=== PATIENT | male | born 1985 | race Caucasian/White ===

== ENCOUNTER 2017-07-23 01:03 | Emergency (ER) | payer OTHER ==
[~2017-07-23] VITALS: Ht 182.9 cm; Wt 120.9 kg
[2017-07-23 01:10] VITALS: TEMP 36.6; O2SAT 98; Ht 182.9 cm; Wt 120.9 kg
[2017-07-23 01:21] VITALS: BP 116/76
[2017-07-23] MEDS ORDERED: LORAZEPAM 2 MG/ML 1 ML VIAL IV STA (01:22)
[2017-07-23 01:32] LABS: BASO ABS # 0.07 K/uL (0-0.2); EOS % 3.8 %; EOS ABS # 0.26 K/uL (0-0.5); HEMATOCRIT 45.8 % (42-52); HEMOGLOBIN 16.2 g/dL (14.0-18.0); IG# 0.03 K/uL (0.00-0.02); LYMPH % 32.2 %; MEAN CELL VOLUME 86.3 fL (80-100); MEAN CORPUSCULAR HEMOGLOBIN 30.5 pg (25-34); MEAN CORPUSCULAR HGB CONC 35.4 g/dl (32-36); MEAN PLATELET VOLUME 9.3 fL (7.4-10.4); MONO % 7.6 %; MONO ABS # 0.52 K/uL (0.11-0.59); NEUT ABS # 3.75 K/uL (1.4-6.5); PLATELET COUNT 222 K/uL (130-400); RED CELL DISTRIBUTION WIDTH CV 13.1 % (11.5-14.5); WHITE BLOOD COUNT 6.83 K/uL (4.8-10.8)
[2017-07-23] MEDS ORDERED: IBUP-1050 PO (02:01)
[2017-07-23] MEDS ORDERED: ACET-1256 PO (02:01)
[2017-07-23 02:07] LABS: ALBUMIN 3.9 gm/dl (3.4-5.0); ALKALINE PHOSPHATASE 64 U/L (45-117); ALT/SGPT 39 U/L (12-78); AST/SGOT 21 U/L (15-37); BLOOD UREA NITROGEN 15 mg/dl (7-18); CALCIUM 8.6 mg/dl (8.5-10.1); CARBON DIOXIDE 25 mmol/L (21-32); CREATININE 0.71 mg/dl (0.60-1.40); GLUCOSE 90 mg/dl (70-99); LIPASE 91 U/L (73-393); SODIUM 139 mmol/L (136-145); TOTAL PROTEIN 7.2 gm/dl (6.4-8.2)
[2017-07-23] MEDS ORDERED: CLOTRIMAZOLE 1% CR 15 GM TUBE EXT ONE (02:30)
[2017-07-23 03:45] VITALS: PULSE 74; O2SAT 95
--- NOTE | 2017-07-23 04:16 | EMERGENCY ROOM VISIT NOTE ---
History First contact with patient: 01:16 Chief Complaint: CHEST PAIN Stated Complaint: CHEST PAIN,ALL OVER WEIRD FEELING Nursing Triage Summary: Patient c/o left sided chest tightness for two days that is intermittent also having sob on and off. History of Present Illness The patient is a 32 year old male who presents to the Emergency Room with complaints of intermittent chest pain for the past few days that lasts for about 10 minutes to left-sided chest. Nothing makes it better or worse. It does not radiate. Patient states he feels anxious and has been stressing over this. Because of this, he feels he might be short of breath. Patient denies exertional chest pain, cough, congestion, abdominal pain, leg pain, leg swelling , fever, chills, back pain, recent travel, drug use. He does smoke. No family history of heart disease or blood clots. His mother from breast cancer. Patient also complains of an itchy rash to his right lower leg for the past several weeks. He has tried steroid cream with no improvement of symptoms. Review of Systems An 10 system review of systems was completed with positives and pertinent negatives listed in the HPI. Past Medical/Surgical History None Social History Smoking Status: Current Every Day Smoker Alcohol Use: occasionally Drug Use: none Marital Status: single Housing Status: lives with roommate Occupation Status: employed Current/Historical Medications Scheduled PRN Acetaminophen (Tylenol), 500-1,000 MG PO DIRECTED PRN for Pain or Fever Ibuprofen (Advil), 200-600 MG PO Q4H PRN for Pain or Fever Physical Exam Vital Signs Date Time Temp Pulse Resp B/P (MAP) Pulse Ox O2 Delivery O2 Flow Rate FiO2 07/23/17 03:45 74 20 95 Room Air 07/23/17 03:15 71 96 Room Air 07/23/17 02:45 70 18 92 Room Air 07/23/17 02:15 75 22 92 Room Air 07/23/17 01:45 79 22 94 Room Air 07/23/17 01:40 79 22 96 Room Air 07/23/17 01:21 116/76 07/23/17 01:17 99 Room Air 07/23/17 01:13 73 07/23/17 01:11 134/83 07/23/17 01:10 36.6 67 20 134/83 99 Room Air 07/23/17 01:10 98 Room Air Physical Exam VITALS: Vitals are noted on the nurse's note and reviewed by myself. Vital signs stable. GENERAL: White male with tobacco odor, in no acute distress, nondiaphoretic, well-developed well-nourished. SKIN: Right lower leg with raised erythematous dermatitis 5 cm x 3 cm to the right lateral lower leg. The rest of the skin was without rashes, erythema, edema, or bruising. There is no tenting of the skin. Capillary reflex less than 2 seconds. HEAD: Normocephalic atraumatic. EARS: External auditory canals clear, tympanic membranes pearly beyer without erythema or effusion bilaterally. EYES: Pupils equal round and reactive to light and accommodation. Conjunctivae without injection, sclerae without icterus. Extraocular movements intact. NOSE: Patent, turbinates without inflammation or discharge. MOUTH: Mucous membranes moist. Pharynx without erythema or exudate. Uvula midline. Airway patent. Tongue does not deviate. NECK: Supple without nuchal rigidity. No lymphadenopathy. No thyromegaly. Cervical spine is nontender. No JVD. HEART: Regular rate and rhythm without murmurs gallops or rubs. LUNGS: Clear to auscultation bilaterally without wheezes, rales or rhonchi. No retractions or accessory muscle use. ABDOMEN: Positive bowel sounds x 4. Normal tympanic percussion. Soft, nontender, without masses or organomegaly. Malin sign negative. No guarding or rebound tenderness. No CVA tenderness MUSCULOSKELETAL: No muscle atrophy, erythema, or edema noted. NEURO: Patient was alert and oriented to person place and time. Normal sensation to light and sharp touch. No focal neurological deficits. Medical Decision & Procedures Laboratory Results 07/23/17 01:23 Red Blood Count 5.31, Mean Corpuscular Volume 86.3, Mean Corpuscular Hemoglobin 30.5, Mean Corpuscular Hemoglobin Concent 35.4, Mean Platelet Volume 9.3, Neutrophils (%) (Auto) 55.0, Lymphocytes (%) (Auto) 32.2, Monocytes (%) (Auto) 7.6, Eosinophils (%) (Auto) 3.8, Basophils (%) (Auto) 1.0, Neutrophils # (Auto) 3.75, Lymphocytes # (Auto) 2.20, Monocytes # (Auto) 0.52, Eosinophils # (Auto) 0.26, Basophils # (Auto) 0.07 07/23/17 01:23 Test 07/23/17 01:23 07/23/17 03:55 White Blood Count 6.83 K/uL (4.8-10.8) Red Blood Count 5.31 M/uL (4.7-6.1) Hemoglobin 16.2 g/dL (14.0-18.0) Hematocrit 45.8 % (42-52) Mean Corpuscular Volume 86.3 fL (80-100) Mean Corpuscular Hemoglobin 30.5 pg (25-34) Mean Corpuscular Hemoglobin Concent 35.4 g/dl (32-36) Platelet Count 222 K/uL (130-400) Mean Platelet Volume 9.3 fL (7.4-10.4) Neutrophils (%) (Auto) 55.0 % Lymphocytes (%) (Auto) 32.2 % Monocytes (%) (Auto) 7.6 % Eosinophils (%) (Auto) 3.8 % Basophils (%) (Auto) 1.0 % Neutrophils # (Auto) 3.75 K/uL (1.4-6.5) Lymphocytes # (Auto) 2.20 K/uL (1.2-3.4) Monocytes # (Auto) 0.52 K/uL (0.11-0.59) Eosinophils # (Auto) 0.26 K/uL (0-0.5) Basophils # (Auto) 0.07 K/uL (0-0.2) RDW Standard Deviation 41.0 fL (36.4-46.3) RDW Coefficient of Variation 13.1 % (11.5-14.5) Immature Granulocyte % (Auto) 0.4 % Immature Granulocyte # (Auto) 0.03 K/uL (0.00-0.02) D-Dimer < 190 ug/L FEU (0-500) Anion Gap 6.0 mmol/L (3-11) Est Creatinine Clear Calc Drug Dose 204.3 ml/min Estimated GFR () 145.9 Estimated GFR (Non- 125.9 BUN/Creatinine Ratio 21.5 (10-20) Calcium Level 8.6 mg/dl (8.5-10.1) Total Bilirubin 0.5 mg/dl (0.2-1) Direct Bilirubin 0.2 mg/dl (0-0.2) Aspartate Amino Transf (AST/SGOT) 21 U/L (15-37) Alanine Aminotransferase (ALT/SGPT) 39 U/L (12-78) Alkaline Phosphatase 64 U/L (45-117) Troponin I < 0.015 ng/ml (0-0.045) Total Protein 7.2 gm/dl (6.4-8.2) Albumin 3.9 gm/dl (3.4-5.0) Lipase 91 U/L (73-393) Chemistry Specimen Hemolysis Bedside Troponin I < 0.030 ng/ml (0-0.045) Medications Administered Medications (Trade) Dose Ordered Sig/Jing Route Start Time Stop Time Status Last Admin Dose Admin Lorazepam (Ativan Inj) 1 mg NOW STAT IV 07/23/17 01:22 07/23/17 01:23 DC 07/23/17 01:30 1 MG Clotrimazole (Lotrimin 1% Crm) 1 appln NOW ONCE EXT 07/23/17 02:30 07/23/17 02:31 DC 07/23/17 02:30 1 APPLN ED Course Prior records/ancillary studies reviewed. Triage Nursing notes reviewed. The patient's history was concerning for chest pain. Differential diagnosis: Etiologies such as cardiac ischemia, aortic dissection, pulmonary embolism, pneumonia, pneumothorax, musculoskeletal, infections, pericarditis, myocarditis , esophageal rupture, gastrointestinal, as well as others were entertained. Physical examination: As above. ER treatment provided: Ativan, clotrimazole cream to the rash On reassessment the patient felt better. Diagnostic interpretation by me: The electrocardiogram was negative for pathologic change. Normal sinus, normal intervals, no acute ST-T wave changes. Impression normal sinus rhythm interpreted by myself The labs revealed negative d-dimer. Negative troponin 2 Imaging studies: Chest x-ray with no acute consolidation, pneumothorax free of my interpretation HEART SCORE: Hx: high/mod/low suspicion: 0 ECG: ST depression/nonspecific changes/normal: 0 Age: Greater than 65/45-64/less than 45: 0 Risk factors: (Hypertension, hyperlipidemia, diabetes, coronary disease, tobacco use, cocaine use): 1 Troponin: Greater than 2 times normal limits/1-2 times normal limits/normal: 0 Total: 1 Wells Score Symptoms of DVT 3pt: 0 Alternative diagnoses better explains illness 3pts: 0 Tachycardia greater than 100 1.5 pts 0 Immobilization greater than 3 days or surgery in the previous 4 weeks 1.5 pts: 0 Prior history of DVT or PE 1.5 pts: 0 Presence of hemoptysis 1pt: 0 Presence of malignancy 1pt: 0 (Score greater than 6 is high probability, score 2-6 moderate probability, score less than 2 low probability) Total: 0 Exam and history seem consistent with chest pain most likely related to anxiety. Rash could be fungal and patient was given clotrimazole cream. Patient had unremarkable workup as above. Normal EKG. Negative troponin x 2. Negative d-dimer. Patient was advised to rest, stay well-hydrated follow-up family can a few days here in the ER sooner for chest pain, difficulty breathing , worsening signs or symptoms or as needed. I do not believe this is cardiac in etiology. Patient's heart score was low. He had a normal EKG and 2 negative troponins. D-dimer was negative and wells score was low. By the evaluation outlined above emergent etiologies such as cardiac ischemia, aortic dissection, pulmonary embolism, pneumonia, pneumothorax, infections, pericarditis, myocarditis, gastrointestinal, as well as others were deemed relatively unlikely. The pt informed about the findings as listed above. All questions were answered and pleased with the treatment. Return instructions were outlined and the patient was discharged in stable condition. Referral: The patient was referred back to primary care physician for follow-up in 2 to 3 days for a recheck of the current condition. Case reviewed with my attending The chart was completed utilizing [employer] Speech voice recognition software. Grammatical errors, random word insertions, pronoun errors, and incomplete sentences are an occassional consequence of this system due to software limitations, ambient noise, and hardware issues. Any formal questions or concerns about the content, text, or information contained within the body of this dictation should be directly addressed to the physician printer assistant for clarification. Medical Decision As above Medication Reconcilliation Current Medication List: was personally reviewed by me Blood Pressure Screening Patient's blood pressure: Normal blood pressure Impression Primary Impression: Substernal precordial chest pain Additional Impression: Dermatitis Departure Information Dispostion Home / Self-Care Condition GOOD Referrals No Doctor, Assigned (PCP) Patient Instructions My [facility] Additional Instructions Clotrimazole cream: Apply to the affected area twice a day.Any medication can cause an allergic reaction, stop the pills immediately and return to the ER for rash, hives, breathing difficulties, or swelling. Ibuprofen(Motrin, Advil) may be used for fever or pain. Use 600mg every six hours as needed. Take with food. Avoid using more than 2400mg in a 24 hour period. Do not use 2400mg per day for more than three consecutive days without physician direction. Prolonged inappropriate use can lead to stomach upset or ulcers. (AND/OR) Acetaminophen(Tylenol) may be used for fever or pain. Use 1000mg every six hours as needed. Avoid using more than 3000mg in a 24 hour period. Rest and drink plenty of fluids as tolerated. Continue current medications. Avoid strenuous activities and anything that worsens your pain. Resume normal activities once your symptoms resolve. Return to the ER immediately for worsening or persistent chest pain, abdominal pain, vomiting, fevers, chest pains, difficulty breathing, worsening of your condition, or as needed. Follow up with your primary physician in 2-3 days for a recheck of your current condition. Problem Qualifiers
--- NOTE | 2017-07-23 07:45 | DIAGNOSTIC IMAGING REPORT ---
CHEST ONE VIEW PORTABLE CLINICAL HISTORY: 32 years-old Male presenting with CHEST PAIN. TECHNIQUE: Portable upright AP view of the chest was obtained. COMPARISON: None. FINDINGS: Cardiac silhouette enlarged. No focal opacity. No large effusion or pneumothorax. Osseous structures normal. Upper abdomen normal. IMPRESSION: 1. Apparent cardiac enlargement though this may be due to AP technique. This could be confirmed with PA view. No other evidence of acute cardiopulmonary disease. Electronically signed by: Jonnathan Dueñas M.D. 07/23/2017 7:43 AM Dictated Date/Time: 07/23/2017 7:42 AM
== END 2017-07-23 04:27 | disposition home or self-care (01) ==
LOC: C.EDB 01:05 → C.EDA 04:27
DX: R07.2 Precordial pain (principal); L30.9 Dermatitis, unspecified; F17.210 Nicotine dependence, cigarettes, uncomplicated